=== PATIENT | female | born 1945 | race Caucasian/White ===

== ENCOUNTER 2021-05-31 13:29 | Outpatient (REF) | payer MEDICARE, OTHER, SELFPAY ==
--- NOTE | ~2021-05-31 | MR_ITS ---
EXAMINATION: MR BRAIN WITHOUT CONTRAST CLINICAL INFORMATION: APHASIA, R/O CVA, TIA COMPARISON: None TECHNIQUE: Multiplanar, multisequence MRI of the brain was obtained without contrast. FINDINGS: No focal reduced diffusion is seen to suggest acute or subacute cerebral ischemia. There is mild microvascular ischemic change. There is a moderate size area of encephalomalacia and gliosis involving the left frontal lobe and insula. No intracranial mass, intra-axial blood products, midline shift, or extra-axial collection is visualized. Midline structures are normal in appearance. The ventricles and sulcal spaces are mildly enlarged reflecting mild cerebral atrophy. Normal arterial and venous vascular flow voids are present. There is mild ethmoid air cell mucosal disease. There is a tiny inferior left mastoid air cell effusion. MR/MR head/brain wo con IMPRESSION: - No evidence of acute or subacute cerebral ischemia. - There is mild microvascular ischemic change. 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 - The ventricles and sulcal spaces are mildly enlarged reflecting mild cerebral atrophy.
== END 2021-05-31 13:30 | disposition home or self-care (01) ==
LOC: HO.MRI 13:29
PROVIDERS: PCP Internal Medicine; Visit Provider Physician Assistant
DX: R47.01 Aphasia (principal)
CPT/HCPCS: 70551

== ENCOUNTER 2023-04-12 19:44 | Inpatient (IN) | payer MEDICARE, SELFPAY ==
--- NOTE | ~2023-04-12 | XR_ITS ---
Examination: Left ankle and left foot. CLINICAL INDICATION: Ankle pain. TECHNIQUE: Left ankle 2 views and left foot 3 views. FINDINGS: Left foot and ankle: There is hallux valgus deformity first and TV joint. No visible acute fracture, dislocation or subluxation seen. There is mild osteopenia. The ankle mortise and subtalar joints are normal. A small calcaneal heel enthesophyte is seen. There are vascular calcifications around the left ankle. XR/XR foot LT 2V IMPRESSION: 1. Mild hallux valgus deformity first MTP joint. No visible acute fracture or dislocation seen in left foot or left ankle There is a small calcaneal heel enthesophyte. 2. There is mild osteopenia.
--- NOTE | ~2023-04-12 | XR_ITS ---
Examination: Left ankle and left foot. CLINICAL INDICATION: Ankle pain. TECHNIQUE: Left ankle 2 views and left foot 3 views. FINDINGS: Left foot and ankle: There is hallux valgus deformity first and TV joint. No visible acute fracture, dislocation or subluxation seen. There is mild osteopenia. The ankle mortise and subtalar joints are normal. A small calcaneal heel enthesophyte is seen. There are vascular calcifications around the left ankle. XR/XR ankle LT min 3V IMPRESSION: 1. Mild hallux valgus deformity first MTP joint. No visible acute fracture or dislocation seen in left foot or left ankle There is a small calcaneal heel enthesophyte. 2. There is mild osteopenia.
--- NOTE | ~2023-04-12 | XR_ITS ---
EXAMINATION: XR CHEST CLINICAL INFORMATION: Chest x-ray COMPARISON: None available. TECHNIQUE: Frontal view of the chest was obtained. FINDINGS: Right-sided pacemaker lead tips overlie the right atrium and right ventricle. Status post TAVR. Lung volumes are symmetric. There is blunting of the costophrenic angles which may represent small pleural effusions versus pleural thickening/scarring. Mild subsegmental atelectasis at the right lung base. No additional consolidation bilaterally. No evidence of pneumothorax. Cardiac silhouette appears enlarged. There is atherosclerotic calcification along the aorta. No acute osseous findings are seen. Partially visualized gastric band in the upper abdomen. XR/XR chest 1V IMPRESSION: Blunting of the costophrenic angles which may represent small pleural effusions versus pleural thickening/scarring. Mild right basilar subsegmental atelectasis.
[2023-04-12 20:01] VITALS: BP 100/49; PULSE 91; RESP 26; TEMP 36.4; O2SAT 97; BMI 23.9
--- NOTE | 2023-04-12 20:07 | ECG_ITS ---
Test Reason : CP Blood Pressure : / mmHG Vent. Rate : 095 BPM Atrial Rate : 095 BPM P-R Int : 184 ms QRS Dur : 170 ms QT Int : 418 ms P-R-T Axes : 048 -14 133 degrees QTc Int : 525 ms Normal sinus rhythm Left atrial enlargement Left bundle branch block Abnormal ECG No previous ECGs available Referred By: Generic ED Physician Electronically Signed By:TE FISH MD
[2023-04-12 20:32] LABS: MANUAL DIFF FLAG NO
[2023-04-12 20:34] LABS: Basophils Percent Auto 0.6 % (0-2); Eosinophils Absolute Auto 0.2 X10*3/uL (0.0-0.4); Eosinophils Percent Auto 3.1 % (0-4); Hematocrit 41.3 % (37.0-47.0); Hemoglobin 13.5 g/dl (12.0-16.0); Imm Gran Abs Auto 0.01 X10*3/uL (0.00-0.03); Imm Gran Pct Auto 0.2 % (0.0-0.4); Lymphocytes Absolute Auto 0.6 X10*3/uL (1.2-4.9); Lymphocytes Percent Auto 11.7 % (20-40); Mean Corpuscular HGB Conc 32.7 g/dl (31.0-35.0); Mean Corpuscular Hemoglobin 30.1 pg (27.0-33.0); Mean Platelet Volume 9.3 fL (9.4-12.3); Monocytes Absolute Auto 0.7 X10*3/uL (0.1-1.2); Monocytes Percent Auto 15.1 % (2-11); Neutrophils Absolute Auto 3.4 x10*3/uL (2.0-8.3); Neutrophils Percent Auto 69.3 % (45-73); Platelet Count 260 X10*3/uL (160-400); Red Blood Count 4.49 X10*6/uL (4.20-5.50); Red Cell Distribution Width 15.1 % (11.0-16.0); White Blood Count 4.9 X10*3/uL (4.8-10.8)
--- NOTE | 2023-04-12 20:39 | ED_ITS ---
HPI - Chest Pain General Chief Complaint: Chest Pain Stated Complaint: CHEST PAIN Time Seen by Provider: 04/12/23 20:21 Source: patient and EMS Mode of arrival: EMS Limitations: no limitations History of Present Illness HPI narrative: A 77 year female came in from a long-term for evaluation of chest pain. Discomfort across the chest started about 3-4 hours ago after having his dinner pain lasted for about 10 minutes, no radiation, no other associated symptoms. Patient now has no pain, no clear factor to alleviate the pain or make it worse. Related Data Allergies Allergy/AdvReac Type Severity Reaction Status Date / Time Unable to Assess Allergy Verified 04/12/23 20:51 Review of Systems Review of Systems: All other systems are reviewed and are negative Constitutional: Reports as per HPI and Reports no additional constitutional complaints Eyes: Reports as per HPI and Reports no additional eye complaints Reports system reviewed and no additional complaints, except as documented Cardiovascular: Reports as per HPI and Reports no additional cardiovascular complaints Respiratory: Reports as per HPI and Reports no additional respiratory complaints Gastrointestinal: Reports as per HPI and Reports no additional gastrointestinal complaints Genitourinary: Reports no additional female genitourinary complaints Musculoskeletal: Reports no additional musculoskeletal complaints Skin/Breast: Reports system reviewed and no additional complaints, except as docu Psychiatric: Reports no additional psychiatric complaints Endocrine: Reports no additional endocrine complaints Hematologic/Lymphatic: Reports no additional hematologic/lymphatic complaints Allergic/Immunologic: Reports no additional allergic/immunologic complaints Reports system reviewed and no additional complaints, except as documented and Reports Abnormal speech present [facility] Social History Social History Alcohol intake: never Smoked in Last 30 Days: No Use of substances other than those prescribed or required for medical reasons: No Advance Directives: No Advance Directives Information Provided: No Physical Exam Vital Signs: Vital Signs: Last Vital Signs Temp 98 F 04/12/23 23:09 Pulse 84 04/12/23 23:09 Resp 18 04/12/23 23:09 BP 101/55 L 04/12/23 23:09 Pulse Ox 94 04/12/23 23:09 O2 Del Method Room Air 04/12/23 23:09 BMI result Body Mass Index 23.9 Vital signs have been reviewed as appeared to be correct. Blood pressure normal. Heart rate normal. Respiration rate normal. Temperature normal. Oxygen saturation normal. Appearance: Alert. Oriented X3. No acute distress. Head: Normal external exam. Normocephalic. Atraumatic. No Hanson signs noted. No raccoon eyes noted Eyes: PERRLA. EOMI. Conjunctiva and sclera normal. Eyelids normal. ENT: TM's Normal. Pharynx normal. Uvula midline. Moist mucous membranes. No trismus noted. No drooling noted. No muffled voice noted. Neck: Normal inspection. Neck supple. FROM. No adenopathy. Thyroid Normal. No meningeal signs. No neck mass noted. CVS: Normal heart rate and rhythm. Heart sound normal. No murmurs noted. Pulses normal throughout. Respiratory: No respiratory distress. Painless inspiration. Breath sounds normal. Bilateral rales at the bases. Chest nontender. No accessory muscle usage noted or decreased air movement noted. Abdomen: Soft and nontender. Bowel sounds normal in all 4 quadrants. No distention noted. No organomegaly noted. No visible injury noted. Back: No CVA tenderness. Full range of motion noted. Skin: Skin warm and dry. Normal skin color. Normal skin turgor. No rashes/lesions/lacerations noted. Extremities: +2 lower extremity edema. Extremities exhibit normal range of motion. Extremities nontender. Neuro: Oriented X 3. Cranial nerve exam: II-XII are grossly intact No motor deficit. No sensory deficit. Reflexes normal. Course Course Course Narrative: 77-year-old female came in for CP/SOB, physical exam consistent with congestive heart failure, patient was given Lasix in the emergency department for diuresis, will admit the patient Medical Decision Making Differential Diagnosis Differential Diagnoses: The differential diagnosis associated with the presentation includes (CHF, pneumonia, pneumothorax, pleural effusion, ACS, electrolyte abnormalities, severe anemia.) Admission/Observation Consideration of admission/observation: Escalation of care including admission/ observation considered Consult Healthcare Provider Management of the patient was discussed with: Hospitalist (Dr. Tejada) Lab Data MDM Lab Attestation statement: I reviewed the patient's lab results. 04/12/23 20:28 04/12/23 20:28 Labs: Lab Results 04/12/23 04/12/23 04/12/23 Range/Units 20:28 20:28 20:28 WBC 4.9 (4.8-10.8) X10*3/uL RBC 4.49 (4.20-5.50) X10*6/uL Hgb 13.5 (12.0-16.0) g/dl Hct 41.3 (37.0-47.0) % MCV 92.0 (80.0-98.0) fL MCH 30.1 (27.0-33.0) pg MCHC 32.7 (31.0-35.0) g/dl RDW 15.1 (11.0-16.0) % Plt Count 260 (160-400) X10*3/uL MPV 9.3 L (9.4-12.3) fL Immature Gran % (Auto) 0.2 (0.0-0.4) % Neut % (Auto) 69.3 (45-73) % Lymph % (Auto) 11.7 L (20-40) % Angel[place] % (Auto) 15.1 H (2-11) % Eos % (Auto) 3.1 (0-4) % Baso % (Auto) 0.6 (0-2) % Lymph # (Auto) 0.6 L (1.2-4.9) X10*3/uL [place] # (Auto) 0.7 (0.1-1.2) X10*3/uL Eos # (Auto) 0.2 (0.0-0.4) X10*3/uL Baso # (Auto) 0.0 (0.0-0.2) X10*3/uL Abs Immat Gran (auto) 0.01 (0.00-0.03) X10*3/uL Absolute Neuts (auto) 3.4 (2.0-8.3) x10*3/uL Absolute Nucleated RBC 0.000 (0.0-0.012) X10*3/uL Nucleated RBC % (auto) 0.0 (0.0-0.2) /100WBC PT (10.0-13.1) SEC INR (0.9-1.1) Sodium 137 (135-145) mmol/L Potassium 4.2 (3.3-5.1) mmol/L Chloride 97 (96-108) mmol/L Carbon Dioxide 31 H (22-29) mmol/L Anion Gap 13 (12-20) BUN 42 H (9-16) mg/dL Creatinine 1.05 (0.5-1.4) mg/dL Estim Creat Clear Calc 40.0 Estimated GFR 51 Random Glucose 129 H (60-115) mg/dL Calcium 9.5 (8.4-10.2) mg/dL Magnesium (1.6-2.6) mg/dL Total Bilirubin 0.9 (0.0-1.0) mg/dL Direct Bilirubin 0.3 (0.0-0.5) mg/dL AST 20 (5-31) U/L ALT 7 (0-31) U/L Alkaline Phosphatase 118 H (39-117) U/L Troponin I High Sens 17.2 H (<3.5-17.0) ng/L B-Natriuretic Peptide (<100) pg/mL Total Protein 7.2 (6.5-8.0) g/dL Albumin 3.7 (3.5-5.0) g/dL Lipase 46 (8-78) U/L 04/12/23 04/12/23 04/12/23 Range/Units 20:42 20:42 20:42 WBC (4.8-10.8) X10*3/uL RBC (4.20-5.50) X10*6/uL Hgb (12.0-16.0) g/dl Hct (37.0-47.0) % MCV (80.0-98.0) fL MCH (27.0-33.0) pg MCHC (31.0-35.0) g/dl RDW (11.0-16.0) % Plt Count (160-400) X10*3/uL MPV (9.4-12.3) fL Immature Gran % (Auto) (0.0-0.4) % Neut % (Auto) (45-73) % Lymph % (Auto) (20-40) % [place] % (Auto) (2-11) % Eos % (Auto) (0-4) % Baso % (Auto) (0-2) % Lymph # (Auto) (1.2-4.9) X10*3/uL [place] # (Auto) (0.1-1.2) X10*3/uL Eos # (Auto) (0.0-0.4) X10*3/uL Baso # (Auto) (0.0-0.2) X10*3/uL Abs Immat Gran (auto) (0.00-0.03) X10*3/uL Absolute Neuts (auto) (2.0-8.3) x10*3/uL Absolute Nucleated RBC (0.0-0.012) X10*3/uL Nucleated RBC % (auto) (0.0-0.2) /100WBC PT 18.7 H (10.0-13.1) SEC INR 1.6 H (0.9-1.1) Sodium (135-145) mmol/L Potassium (3.3-5.1) mmol/L Chloride (96-108) mmol/L Carbon Dioxide (22-29) mmol/L Anion Gap (12-20) BUN (9-16) mg/dL Creatinine (0.5-1.4) mg/dL Estim Creat Clear Calc Estimated GFR Random Glucose (60-115) mg/dL Calcium (8.4-10.2) mg/dL Magnesium 2.2 (1.6-2.6) mg/dL Total Bilirubin (0.0-1.0) mg/dL Direct Bilirubin (0.0-0.5) mg/dL AST (5-31) U/L ALT (0-31) U/L Alkaline Phosphatase (39-117) U/L Troponin I High Sens (<3.5-17.0) ng/L B-Natriuretic Peptide 3483 H (<100) pg/mL Total Protein (6.5-8.0) g/dL Albumin (3.5-5.0) g/dL Lipase (8-78) U/L 04/12/23 Range/Units 23:16 WBC (4.8-10.8) X10*3/uL RBC (4.20-5.50) X10*6/uL Hgb (12.0-16.0) g/dl Hct (37.0-47.0) % MCV (80.0-98.0) fL MCH (27.0-33.0) pg MCHC (31.0-35.0) g/dl RDW (11.0-16.0) % Plt Count (160-400) X10*3/uL MPV (9.4-12.3) fL Immature Gran % (Auto) (0.0-0.4) % Neut % (Auto) (45-73) % Lymph % (Auto) (20-40) % Angel[place] % (Auto) (2-11) % Eos % (Auto) (0-4) % Baso % (Auto) (0-2) % Lymph # (Auto) (1.2-4.9) X10*3/uL [place] # (Auto) (0.1-1.2) X10*3/uL Eos # (Auto) (0.0-0.4) X10*3/uL Baso # (Auto) (0.0-0.2) X10*3/uL Abs Immat Gran (auto) (0.00-0.03) X10*3/uL Absolute Neuts (auto) (2.0-8.3) x10*3/uL Absolute Nucleated RBC (0.0-0.012) X10*3/uL Nucleated RBC % (auto) (0.0-0.2) /100WBC PT (10.0-13.1) SEC INR (0.9-1.1) Sodium (135-145) mmol/L Potassium (3.3-5.1) mmol/L Chloride (96-108) mmol/L Carbon Dioxide (22-29) mmol/L Anion Gap (12-20) BUN (9-16) mg/dL Creatinine (0.5-1.4) mg/dL Estim Creat Clear Calc Estimated GFR Random Glucose (60-115) mg/dL Calcium (8.4-10.2) mg/dL Magnesium (1.6-2.6) mg/dL Total Bilirubin (0.0-1.0) mg/dL Direct Bilirubin (0.0-0.5) mg/dL AST (5-31) U/L ALT (0-31) U/L Alkaline Phosphatase (39-117) U/L Troponin I High Sens 19.3 H (<3.5-17.0) ng/L B-Natriuretic Peptide (<100) pg/mL Total Protein (6.5-8.0) g/dL Albumin (3.5-5.0) g/dL Lipase (8-78) U/L Independent Interpretation I performed an independent interpretation of an: EKG (NSR at 95 Bpm. LBBB with prolonged QRS otherwise unremarkable intervals, no ST-T changes.) and Plain X- Ray (Chest: Pulmonary edema with no congestion.) Radiology Impression Discussion of test interpretation with radiology: I have reviewed the radio logist's reading. Chronic Conditions Patient?s care impacted by: Other Discharge Plan Discharge Clinical Impression: Atypical chest pain, Congestive heart failure Patient Disposition: Admitted As Inpatient
[2023-04-12 20:44] VITALS: BP 90/68; PULSE 102; RESP 16; TEMP 37; O2SAT 100
[2023-04-12 20:48] LABS: Alanine Aminotransferase 7 U/L (0-31); Albumin Level 3.7 g/dL (3.5-5.0); Alkaline Phosphatase 118 U/L (39-117); Anion Gap 13 (12-20); Aspartate Amino Transferase 20 U/L (5-31); Bilirubin Direct 0.3 mg/dL (0.0-0.5); Bilirubin Total 0.9 mg/dL (0.0-1.0); Blood Urea Nitrogen 42 mg/dL (9-16); Calcium 9.5 mg/dL (8.4-10.2); Carbon Dioxide 31 mmol/L (22-29); Chloride 97 mmol/L (96-108); Estimated Glomerular Filt Rate 51; Glucose Random 129 mg/dL (60-115); Lipase 46 U/L (8-78); Potassium 4.2 mmol/L (3.3-5.1); Sodium 137 mmol/L (135-145); Total Protein 7.2 g/dL (6.5-8.0)
--- NOTE | 2023-04-12 20:52 | PC.NURSE ---
patient was brought in by Johnathan patient was complaining of having tightness in chest area after eating pizza patient has a history of left bundle branch patient blood pressure runs low patient stated she has a history of left breast cancer patient had all labs to be drawn and patient stated she does not have that feeling any more patient will continue to be monitored for safety until further orders from the doctor until further orders safety will be maintained
[2023-04-12 20:55] LABS: Troponin-I High Sensitivity 17.2 ng/L (<3.5-17.0)
[2023-04-12 20:56] LABS: INTERNATIONAL NORM RATIO 1.6 (0.9-1.1); Prothrombin Time 18.7 SEC (10.0-13.1)
[2023-04-12 21:02] LABS: Magnesium 2.2 mg/dL (1.6-2.6)
[2023-04-12 21:09] LABS: B Type Natriuretic Peptide 3483 pg/mL (<100)
[2023-04-12 23:09] VITALS: BP 101/55; PULSE 84; RESP 18; TEMP 36.6; O2SAT 94
[2023-04-12 23:43] LABS: Troponin-I High Sensitivity 19.3 ng/L (<3.5-17.0)
[2023-04-13] MEDS: Furosemide 40 MG/4 ML VIAL IVPUSH ×2 (00:21→10:30)
--- NOTE | 2023-04-13 00:23 | PC.NURSE ---
patient was able to tolerate the lasix given by IV patient will continue to be monitored for safety
[2023-04-13] MEDS: Enoxaparin Sodium 40 MG/0.4 ML SYRINGE SUBCUT (01:10)
[2023-04-13 02:49] LABS: Appearance Urine Clear; Color Urine Yellow; Glucose Urine UA Negative (Negative); Leukocyte Esterase Urine Trace (Negative); Nitrite Urine Negative (Negative); Specific Gravity - Urine <= 1.005 (1.005-1.025); UMIC TRIGGER UACC YES; Urine Blood Negative (Negative); Urine Ketones Negative (Negative); Urine Protein Negative (Neg-Trace)
[2023-04-13 02:53] LABS: Bacteria Urine None Seen (None Seen); Hyaline Casts Urine 0-2 /LPF (0-2); RBC Urine 0-2 /HPF (0-2); Squamous Epithelial Cell Urine 0-2 /HPF (0-2); WBC Urine 0-5 /HPF (0-5)
[2023-04-13 04:13] VITALS: BP 125/80; PULSE 77; RESP 18; TEMP 36.9; O2SAT 99
--- NOTE | 2023-04-13 04:14 | PC.NURSE ---
patient in bed with eyes open patient showing no distress at this time patient report was given to Josiah the receiving nurse patient was made aware patient will continue to be monitored for safety
[2023-04-13 04:30] VITALS: BP 110/59; PULSE 88; RESP 20; TEMP 36.1; O2SAT 98
--- NOTE | 2023-04-13 06:42 | PM.IMHP ---
History of Present Illness Date of Service: 04/13/23 Chief Complaint: chest pain this is a 77-year-old female past medical history of CHF with reduced ejection fraction, History of left bundle-branch block presents the hospital with complaints of chest pain that started this afternoon. patient is a poor historian but reports that she has chest pain across the chest, feels like something/ someone is sitting on her chest, nonradiating, lasted less than 30 minutes, resolved spontaneously, occurred at rest. Patient is also complaining of shortness of breath this been going on for several days, orthopnea, PND, no lower extremity edema. No cough, no fever chills. She denies any palpitations, no abdominal pain nausea or vomiting, no diarrhea constipation, no urinary symptoms and no lower extremity edema. Arrival to the ED patient hemodynamically stable no significant abnormal vitals Labs are significant for BNP of 3483, troponin of 17 that increased to 19, EKG showed normal sinus rhythm, with T-wave inversions in V6 left bundle branch block which patient has a history of. chest x-ray shows blunting of the costophrenic angle which may represent small pleural effusions patient started on IV Lasix and will be admitted for further management Review of Systems Review of Systems: Yes all other systems are reviewed and are negative [facility] Medical History History of CHF (congestive heart failure) History of left bundle branch block Hypertension Surgical History No pertinent past surgical history Social History Alcohol intake: never Smoked in Last 30 Days: No Use of substances other than those prescribed or required for medical reasons: No Advance Directives: No Advance Directives Information Provided: No Meds Allergies Allergy/AdvReac Type Severity Reaction Status Date / Time Unable to Assess Allergy Verified 04/12/23 20:51 Active Medications: Current Medications Acetaminophen (Acetaminophen 325 Mg Tablet) 650 mg PO Q6H PRN PRN Reason: Pain, Mild (Pain Scale 1-3) Aspirin (Aspirin Enteric Coated 81 Mg Tablet.Dr) 81 mg PO DAILY WILMAR Docusate Sodium (Docusate Sodium 100 Mg Capsule) 100 mg PO DAILY PRN PRN Reason: Constipation Enoxaparin Sodium (Enoxaparin Sodium 40 Mg/0.4 Ml Syringe) 40 mg SUBCUT Q24H WILMAR Last Admin: 04/13/23 01:10 Dose: 40 mg Furosemide (Furosemide 40 Mg/4 Ml Vial) 40 mg IVPUSH DAILY [facility]; Protocol Ondansetron HCl (Ondansetron Hcl 4 Mg/2 Ml Vial) 4 mg IVPUSH Q8H PRN PRN Reason: Nausea and Vomiting Sodium Chloride (0.9 % Sodium Chloride Flush 3 Ml Syringe) 3 ml IVFLUSH QSHIFT [facility] Physical Exam Vital Signs and Narrative: Vital Signs: Last Vital Signs Temp 96.9 F 04/13/23 04:30 Pulse 88 04/13/23 04:30 Resp 20 04/13/23 04:30 BP 110/59 L 04/13/23 04:30 Pulse Ox 98 04/13/23 04:30 O2 Del Method Room Air 04/13/23 04:30 BMI result Body Mass Index 23.9 Const: General: cooperative and no acute distress Eyes: General: appearance normal, both eyes and all related structures Resp: Effort & Inspection: normal respiratory effort Auscultation: clear to auscultation bilaterally Cardio: Rate: regular rate Rhythm: regular rhythm GI: Palpation (GI): Soft to palpation Auscultation: normal bowel sounds Skin: General skin exam: no rashes or lesions noted Neuro: Cognition (Neuro): normal cognition Extrem: General: Yes normal to inspection and Yes no pedal edema Results Labs 04/12/23 20:28 04/12/23 20:28 Labs: Laboratory Results - last 24 hr 04/12/23 04/12/23 04/12/23 20:28 20:28 20:28 MCV 92.0 MCH 30.1 MCHC 32.7 RDW 15.1 Plt Count 260 MPV 9.3 L Immature Gran % (Auto) 0.2 Neut % (Auto) 69.3 Lymph % (Auto) 11.7 L [place] % (Auto) 15.1 H Eos % (Auto) 3.1 Baso % (Auto) 0.6 Lymph # (Auto) 0.6 L [place] # (Auto) 0.7 Eos # (Auto) 0.2 Baso # (Auto) 0.0 Abs Immat Gran (auto) 0.01 Absolute Neuts (auto) 3.4 Absolute Nucleated RBC 0.000 Nucleated RBC % (auto) 0.0 PT INR Anion Gap 13 Estim Creat Clear Calc 40.0 Estimated GFR 51 Random Glucose 129 H Calcium 9.5 Magnesium Total Bilirubin 0.9 Direct Bilirubin 0.3 AST 20 ALT 7 Alkaline Phosphatase 118 H Troponin I High Sens 17.2 H B-Natriuretic Peptide Total Protein 7.2 Albumin 3.7 Lipase 46 Urine Color Urine Appearance Urine pH Ur Specific [place] Urine Protein Urine Glucose (UA) Urine Ketones Urine Blood Urine Nitrite Ur Leukocyte Esterase Urine RBC Urine WBC Ur Squamous Epith Cells Urine Bacteria Hyaline Casts 04/12/23 04/12/23 04/12/23 20:42 20:42 20:42 MCV MCH MCHC RDW Plt Count MPV Immature Gran % (Auto) Neut % (Auto) Lymph % (Auto) [place] % (Auto) Eos % (Auto) Baso % (Auto) Lymph # (Auto) [place] # (Auto) Eos # (Auto) Baso # (Auto) Abs Immat Gran (auto) Absolute Neuts (auto) Absolute Nucleated RBC Nucleated RBC % (auto) PT 18.7 H INR 1.6 H Anion Gap Estim Creat Clear Calc Estimated GFR Random Glucose Calcium Magnesium 2.2 Total Bilirubin Direct Bilirubin AST ALT Alkaline Phosphatase Troponin I High Sens B-Natriuretic Peptide 3483 H Total Protein Albumin Lipase Urine Color Urine Appearance Urine pH Ur Specific [place] Urine Protein Urine Glucose (UA) Urine Ketones Urine Blood Urine Nitrite Ur Leukocyte Esterase Urine RBC Urine WBC Ur Squamous Epith Cells Urine Bacteria Hyaline Casts 04/12/23 04/13/23 23:16 02:44 MCV MCH MCHC RDW Plt Count MPV Immature Gran % (Auto) Neut % (Auto) Lymph % (Auto) [place] % (Auto) Eos % (Auto) Baso % (Auto) Lymph # (Auto) [place] # (Auto) Eos # (Auto) Baso # (Auto) Abs Immat Gran (auto) Absolute Neuts (auto) Absolute Nucleated RBC Nucleated RBC % (auto) PT INR Anion Gap Estim Creat Clear Calc Estimated GFR Random Glucose Calcium Magnesium Total Bilirubin Direct Bilirubin AST ALT Alkaline Phosphatase Troponin I High Sens 19.3 H B-Natriuretic Peptide Total Protein Albumin Lipase Urine Color Yellow Urine Appearance Clear Urine pH 7.0 Ur Specific [place] <= 1.005 Urine Protein Negative Urine Glucose (UA) Negative Urine Ketones Negative Urine Blood Negative Urine Nitrite Negative Ur Leukocyte Esterase Trace H Urine RBC 0-2 Urine WBC 0-5 Ur Squamous Epith Cells 0-2 Urine Bacteria None Seen Hyaline Casts 0-2 Imaging Radiologist's Impressions: Impressions Chest X-Ray 04/12/23 20:34 IMPRESSION: Blunting of the costophrenic angles which may represent small pleural effusions versus pleural thickening/scarring. Mild right basilar subsegmental atelectasis. Assessment and Plan (1) Acute exacerbation of CHF (congestive heart failure): Status: Acute (2) Chest pain: Status: Acute Plan 77-year-old female with past medical history of CHF with preserved ejection fraction, history of LBBB, presents to the hospital with complaints of chest pain found to be in CHF exacerbation # acute CHF exacerbation - has elevated BNP, evidence of pulmonary effusion - will treat with IV Lasix - echocardiogram - cardiology consult # chest pain - although typical, patient has slightly elevated troponin with no delta - EKG shows LBBB, but according to her history patient has a history of it with no new evidence of ACS - likely type 2 in the setting of CHF - will obtain echocardiogram - admit to telemetry patient med rec still pending, consulted pharmacy DVT prophylaxis: Lovenox Given patient's need for treatment with IV Lasix, patient require minimum 2 nights inpatient hospital stay for further management and monitoring Time Spent With Patient Time: Total time managing care of this patient today ____ minutes. Quality Stroke Does the patient have a stroke diagnosis?: No VTE Prior VTE?: No VTE Risk Level:: Medical - moderate - high VTE Device Contraindication: Treatment Not Indicated VTE Drug Contraindication: N/A - Med Ordered
--- NOTE | 2023-04-13 07:00 | CA_ITS ---
Transthoracic Echocardiogram Patient (Last, First, Middle): Lucy Pandey J Gender: Female Date of : 1945 Age: 77 Procedure Date: 04/13/2023 Procedure Type: Transthoracic Echocardiogram Location: [facility] – [place] Height: 162.56 cm Weight: 63.05 kg BSA: 1.68 m2 Heart Rate: 85 bpm BP: 110 / 59 mmHg Beater Engineer Helper: SARA Douglass MD: Jeannette Chew MD Bobbin Handler: Garfield Garvin MD Symptoms: CHF Study Quality: Adequate ECG Rhythm: Sinus Conclusions: - 1. Mildly dilated left ventricle with significantly reduced LV ejection fraction with LVEF of 20 25% with regional wall motion abnormality consistent with ischemic cardiomyopathy 2. Biatrial enlargement, left greater than right 3. Mild mitral regurgitation and [id number] aortic stenosis 4. Normal RV systolic pressure with mildly elevated right atrial pressures 5. No gross pericardial effusion Findings Left Ventricle Mildly increased left ventricular cavity size. There is normal left ventricular wall thickness. The left ventricular systolic function is severely decreased. The visually estimated ejection fraction is between 20 25%. Diastolic function is indeterminate on the basis of available data. Peak GLS is -4.8%, which is markedly reduced. Wall Motion Rest Echo Findings The inferoseptal wall, inferior wall, inferolateral wall, the apical septum, and mid anteroseptal segments are akinetic. All other scored wall segments showed normal motion. Right Ventricle Mildly increased right ventricular cavity size. There is normal right ventricular systolic function. There is a pacemaker wire seen in the right ventricle. Atria The left atrium is moderately dilated. There is a mobile atrial septum noted. Interatrial shunt cannot be excluded. The right atrium is mildly dilated. A pacemaker wire is identified in the right atrium. Aortic Valve There is mild calcification of the aortic valve. There is mild to moderate aortic valve stenosis. There is no aortic valve regurgitation. Mitral Valve There is mild anterior and posterior mitral leaflet thickening. There is moderate mitral annular calcification. There is mild mitral valve regurgitation. There is no mitral valve stenosis. Pulmonic Valve The pulmonic valve was not well visualized. Tricuspid Valve Normal tricuspid valve structure. There is mild tricuspid valve regurgitation. Mildly elevated right atrial pressure. There is no evidence of pulmonary hypertension. Great Vessels All visible segments of the aorta are normal in size. The pulmonary artery was not well visualized. Venous The inferior vena cava is mildly dilated and collapses less than 50% with inspiration. Pericardium/Pleural There is no evidence of pericardial effusion. Prior Study Comparison No prior study available for comparison. Measurements 2D Linear Measurements IVSd: 0.87 0.6-0.9/0.6-1.0 cm LVIDd: 5.86 3.9-5.3/4.2-5.9 cm LVIDd Index: 3.49 2.4-3.2/2.2-3.1 cm/m2 LVIDs: 5.64 2.0-3.6 cm LVPWd: 0.96 0.7-1.1 cm LA Diam: 4.60 2.7-3.8/3.0-4.0 cm LAIDs Index: 2.74 1.5-2.3 cm/m2 LV Mass: 263.85 67-162/88-224 g LV Mass Index: 157.05 43-95/49-115 g/m2 LVOT Diam: 2.10 3.0+(-)1.3 cm 2D Systolic Function EF 4C: 16.40 >55% EF 2C: 29.70 >55% EF BiP: 23.40 >55% Mitral Valve MV VTI: 0.24 MV Pk Jared: 1.79 MV Mn Jared: 1.21 MV Pk Grad: 13.00 MV Mn Grad: 7.00 MV Pk E: 1.44 MV Decel Time: 168.00 E'Lateral: 9.25 E'Medial: 4.90 E/E' Med: 29.40 E/E' Lat: 15.60 PHT: 49.00 MVA PHT: 4.49 MVA Continuity: 2.61 Decel Erath: 8.57 Aortic Valve AoV Pk Jared: 2.06 AoV Mn Jared: 1.46 AoV VTI: 0.44 AoV Pk Grad: 17.00 Aov Mn Grad: 10.00 TAD Cont.VTI: 1.45 LVOT LVOT Pk Jared: 0.81 LVOT Mn Jared: 0.57 LVOT VTI: 0.18 LVOT Pk Grad: 3.00 LVOT Mn Grad: 2.00 LVOT Diam: 2.10 LVOT Area: 3.46 Diastolic Function MV Pk E: 1.44 E'Medial: 4.90 E/E' Med: 29.40 E' Laterial: 9.25 E/E' Lat: 15.60 Right Ventricle TAPSE (mm): 26.90 TVS' Jared: 7.40 Tricuspid Valve TR Pk Jarde: 2.53 TR Pk Grad: 26.00 RA Press: 8.00 RVSP: 34.00 Great Vessels Aorta Sinus of Valsalva: 3.20 2.0-3.5 cm Ao Asc: 3.10 2.1-3.4 cm Pulmonary Valve PV Pk Jared: 0.80 Peak PV Grad: 3.00 Updated in Other Vendor System with Status of Final Garfield Garvin MD electronically signed on 04/13/2023 11:58:32 AM with status of Final
[2023-04-13 07:08] LABS: Alanine Aminotransferase 6 U/L (0-31); Albumin Level 3.5 g/dL (3.5-5.0); Alkaline Phosphatase 104 U/L (39-117); Anion Gap 12 (12-20); Aspartate Amino Transferase 18 U/L (5-31); Bilirubin Total 0.9 mg/dL (0.0-1.0); Blood Urea Nitrogen 39 mg/dL (9-16); Calcium 9.5 mg/dL (8.4-10.2); Carbon Dioxide 29 mmol/L (22-29); Chloride 99 mmol/L (96-108); Creatinine Clr Calc Pharmacy 44.6; Estimated Glomerular Filt Rate 58; Glucose Random 94 mg/dL (60-115); Potassium 4.1 mmol/L (3.3-5.1); Sodium 136 mmol/L (135-145); Total Protein 6.9 g/dL (6.5-8.0)
[2023-04-13 07:37] VITALS: BP 115/56; PULSE 90; RESP 18; TEMP 36.8; O2SAT 96
--- NOTE | 2023-04-13 08:49 | PHA.MEDREC ---
Pharmacy Consult ? Medication Reconciliation Pharmacy has completed the medication reconciliation. List from manuel goldberg
[2023-04-13 10:01] LABS: B Type Natriuretic Peptide 3136 pg/mL (<100)
[2023-04-13] MEDS: Aspirin Enteric Coated 81 MG TABLET.DR PO (10:30)
[2023-04-13] MEDS: 0.9 % Sodium Chloride Flush 3 ML SYRINGE IVFLUSH ×3 (10:31→19:58)
--- NOTE | 2023-04-13 10:38 | PM.CNCAR ---
History of Present Illness History of Present Illness Date of Service: 04/13/23 Requesting physician: Margaux Mauro Consult reason: congestive heart failure Chief complaint: Acute CHF Narrative: I was consulted to see Lucy in cardiology consultation today for decompensated congestive heart failure and chest discomfort. History was mostly obtained from the chart as patient is a poor historian is not able to provide accurate history. Also discuss her history with Alexandra Richardsvester who is healthcare proxy to the patient but is not related to her and does not know in details of her history. However as per her she has prior history of congestive heart failure and has been told in the past to have a defibrillator and had seen managed care manager about 4-5 months ago. She also has a pacemaker placed in about 5 years ago and has prior history of myocardial infarction many years ago. Also seems to have aortic valve replacement although details unknown based on the echocardiographic finding. Will obtain old records from her managed care manager office. As per the healthcare proxy [facility] because of chest pressure and worsening shortness of breath. As per her she has had significant decline in her overall health in 1 year from being physically very active to limited activity level and has advanced cognitive dysfunction of unclear etiology. She seems to have at stroke but this is unclear. MRI done 2 years ago at shown encephalomalacia consistent with prior stroke. Patient is on low-dose Eliquis therapy for the same. Patient has had difficulty managing [facility] the [facility] and they are increase her torsemide but that will had led to lower blood pressure and had lead to pull back in her torsemide dose. She has had progressive shortness of breath, orthopnea, PND over the last couple weeks. She came to the hospital with across the chest discomfort. She was admitted at troponins are minimally elevated and flat. BNP was significantly elevated and she had decompensated congestive heart failure and was admitted for the same. Her intake and output chart has not been monitored. However she appears comfortable at this point in time. Review of Systems Review of Systems: Yes Unobtainable due to mental status Neurologic: Reports confusion Psychiatric: Psychiatric: Reports confusion [facility] Past Medical History Medical History History of CHF (congestive heart failure) History of left bundle branch block Hypertension Surgical History Surgical History No pertinent past surgical history Social History Social History Household Members: Other Housing: Detention Do you presently have visiting nurse or other home services: No Alcohol intake: never Patient Tobacco Use Status: Never used Tobacco Smoked in Last 30 Days: No Use of substances other than those prescribed or required for medical reasons: No Currently Displaying Signs/Symptoms of Drug Intoxication Withdrawal: No Advance Directives: No Advance Directives Information Provided: No Do you have thoughts of harming others: None Do you have a plan to hurt others: No Plan Nutrition Risks: No Nutritional Risk Patient : No : No Poor oral hygiene: No Meds Allergies Allergy/AdvReac Type Severity Reaction Status Date / Time Unable to Assess Allergy Verified 04/12/23 20:51 Active Medications: Current Medications Acetaminophen (Acetaminophen 325 Mg Tablet) 650 mg PO Q6H PRN PRN Reason: Pain, Mild (Pain Scale 1-3) Anastrozole (Anastrozole 1 Mg Tablet) 1 mg PO DAILY WILMAR Apixaban (Apixaban 2.5 Mg Tablet) 2.5 mg PO BID WILMAR Aspirin (Aspirin Enteric Coated 81 Mg Tablet.) 81 mg PO DAILY WILMAR Last Admin: 04/13/23 10:30 Dose: 81 mg Aspirin (Aspirin Enteric Coated 81 Mg Tablet.) 81 mg PO DAILY WILMAR Atorvastatin Calcium (Atorvastatin Calcium 20 Mg Tablet) 20 mg PO BEDTIME WILMAR Docusate Sodium (Docusate Sodium 100 Mg Capsule) 100 mg PO DAILY PRN PRN Reason: Constipation Enoxaparin Sodium (Enoxaparin Sodium 40 Mg/0.4 Ml Syringe) 40 mg SUBCUT Q24H [facility] Last Admin: 04/13/23 01:10 Dose: 40 mg Furosemide (Furosemide 40 Mg/4 Ml Vial) 40 mg IVPUSH DAILY WILMAR; Protocol Last Admin: 04/13/23 10:30 Dose: 40 mg Multi-Ingred Cream/Lotion/Oil/Oint (Artificial Tears Ophth Oint 3.5 Gm Tube) 1 appl EYE-BOTH DAILY PRN; Protocol PRN Reason: Dry Eye(S) Ondansetron HCl (Ondansetron Hcl 4 Mg/2 Ml Vial) 4 mg IVPUSH Q8H PRN PRN Reason: Nausea and Vomiting Pharmacy Consult (Consult Rx Perform Med Rec) 1 each MISCELLANE ONCE PRN PRN Reason: Consult order Sodium Chloride (0.9 % Sodium Chloride Flush 3 Ml Syringe) [facility] Last Admin: 04/13/23 10:31 Dose: 3 ml Home Medications Medication Instructions Recorded Confirmed Last Taken Type acetaminophen 325 mg tablet 650 mg PO Q4H PRN Pain 04/13/23 04/13/23 Unknown History anastrozole 1 mg tablet 1 mg PO DAILY 04/13/23 04/13/23 Unknown History apixaban 2.5 mg tablet (Eliquis) 2.5 mg PO BID 04/13/23 04/13/23 Unknown History aspirin 81 mg tablet,delayed 81 mg PO DAILY 04/13/23 04/13/23 Unknown History release atorvastatin 20 mg tablet 20 mg PO BEDTIME 04/13/23 04/13/23 Unknown History metolazone 2.5 mg tablet 2.5 mg PO MOFR 04/13/23 04/13/23 Unknown History sacubitril 24 mg-valsartan 26 mg 1 tab PO BID 04/13/23 04/13/23 Unknown History tablet (Entresto) torsemide 20 mg tablet 40 mg PO DAILY 04/13/23 04/13/23 Unknown History white petrolatum-mineral oil 83 1 appl ophthalmic (eye) DAILY PRN 04/13/23 04/13/23 Unknown History %-15 % eye ointment (Artificial Dry Eye(S) Eye Lubricant) Physical Exam Vital Signs: Vital Signs: Last Vital Signs Temp 98.2 F 04/13/23 07:37 Pulse 90 04/13/23 07:37 Resp 18 04/13/23 07:37 BP 115/56 L 04/13/23 07:37 Pulse Ox 96 04/13/23 07:37 O2 Del Method Room Air 04/13/23 07:37 BMI result Body Mass Index 23.9 Const: General: cooperative, comfortable, alert, awake and confusion Nutritional Appearance: average body habitus Orientation/consciousness: confusion Limitations: no limitations HEENT: Head: Yes normocephalic and Yes atraumatic Neck: Neck: Yes trachea midline, Yes supple and Yes no JVD Resp: Effort & Inspection: normal respiratory effort Auscultation: rales bilateral at the base Cardio: Rate: regular rate Rhythm: regular rhythm Heart sounds: S1 normal heart sound present, S2 normal heart sound present, no click, Gallop heart sound present and no murmurs GI: Auscultation: normal bowel sounds Skin: General skin exam: no rashes or lesions noted Neuro: General: no focal motor deficits and confusion Extrem: General: No no clubbing, cyanosis or edema Psych: Appearance: grossly normal Objective Labs and Meds 04/12/23 20:28 04/13/23 06:17 Lab results: Laboratory Results - last 24 hr 04/12/23 04/12/23 04/12/23 20:28 20:28 20:28 WBC 4.9 RBC 4.49 Hgb 13.5 Hct 41.3 MCV 92.0 MCH 30.1 MCHC 32.7 RDW 15.1 Plt Count 260 MPV 9.3 L Immature Gran % (Auto) 0.2 Neut % (Auto) 69.3 Lymph % (Auto) 11.7 L Swisher % (Auto) 15.1 H Eos % (Auto) 3.1 Baso % (Auto) 0.6 Lymph # (Auto) 0.6 L Swisher # (Auto) 0.7 Eos # (Auto) 0.2 Baso # (Auto) 0.0 Abs Immat Gran (auto) 0.01 Absolute Neuts (auto) 3.4 Absolute Nucleated RBC 0.000 Nucleated RBC % (auto) 0.0 PT INR Sodium 137 Potassium 4.2 Chloride 97 Carbon Dioxide 31 H Anion Gap 13 BUN 42 H Creatinine 1.05 Estim Creat Clear Calc 40.0 Estimated GFR 51 Random Glucose 129 H Calcium 9.5 Magnesium Total Bilirubin 0.9 Direct Bilirubin 0.3 AST 20 ALT 7 Alkaline Phosphatase 118 H Troponin I High Sens 17.2 H B-Natriuretic Peptide Total Protein 7.2 Albumin 3.7 Lipase 46 Urine Color Urine Appearance Urine pH Ur Specific Alexander Urine Protein Urine Glucose (UA) Urine Ketones Urine Blood Urine Nitrite Ur Leukocyte Esterase Urine RBC Urine WBC Ur Squamous Epith Cells Urine Bacteria Hyaline Casts 04/12/23 04/12/23 04/12/23 20:42 20:42 20:42 WBC RBC Hgb Hct MCV MCH MCHC RDW Plt Count MPV Immature Gran % (Auto) Neut % (Auto) Lymph % (Auto) Swisher % (Auto) Eos % (Auto) Baso % (Auto) Lymph # (Auto) Swisher # (Auto) Eos # (Auto) Baso # (Auto) Abs Immat Gran (auto) Absolute Neuts (auto) Absolute Nucleated RBC Nucleated RBC % (auto) PT 18.7 H INR 1.6 H Sodium Potassium Chloride Carbon Dioxide Anion Gap BUN Creatinine Estim Creat Clear Calc Estimated GFR Random Glucose Calcium Magnesium 2.2 Total Bilirubin Direct Bilirubin AST ALT Alkaline Phosphatase Troponin I High Sens B-Natriuretic Peptide 3483 H Total Protein Albumin Lipase Urine Color Urine Appearance Urine pH Ur Specific Alexander Urine Protein Urine Glucose (UA) Urine Ketones Urine Blood Urine Nitrite Ur Leukocyte Esterase Urine RBC Urine WBC Ur Squamous Epith Cells Urine Bacteria Hyaline Casts 04/12/23 04/13/23 04/13/23 23:16 02:44 06:17 WBC RBC Hgb Hct MCV MCH MCHC RDW Plt Count MPV Immature Gran % (Auto) Neut % (Auto) Lymph % (Auto) Swisher % (Auto) Eos % (Auto) Baso % (Auto) Lymph # (Auto) Swisher # (Auto) Eos # (Auto) Baso # (Auto) Abs Immat Gran (auto) Absolute Neuts (auto) Absolute Nucleated RBC Nucleated RBC % (auto) PT INR Sodium 136 Potassium 4.1 Chloride 99 Carbon Dioxide 29 Anion Gap 12 BUN 39 H Creatinine 0.94 Estim Creat Clear Calc 44.6 Estimated GFR 58 Random Glucose 94 Calcium 9.5 Magnesium Total Bilirubin 0.9 Direct Bilirubin AST 18 ALT 6 Alkaline Phosphatase 104 Troponin I High Sens 19.3 H B-Natriuretic Peptide Total Protein 6.9 Albumin 3.5 Lipase Urine Color Yellow Urine Appearance Clear Urine pH 7.0 Ur Specific Alexander <= 1.005 Urine Protein Negative Urine Glucose (UA) Negative Urine Ketones Negative Urine Blood Negative Urine Nitrite Negative Ur Leukocyte Esterase Trace H Urine RBC 0-2 Urine WBC 0-5 Ur Squamous Epith Cells 0-2 Urine Bacteria None Seen Hyaline Casts 0-2 04/13/23 06:17 WBC RBC Hgb Hct MCV MCH MCHC RDW Plt Count MPV Immature Gran % (Auto) Neut % (Auto) Lymph % (Auto) Swisher % (Auto) Eos % (Auto) Baso % (Auto) Lymph # (Auto) Swisher # (Auto) Eos # (Auto) Baso # (Auto) Abs Immat Gran (auto) Absolute Neuts (auto) Absolute Nucleated RBC Nucleated RBC % (auto) PT INR Sodium Potassium Chloride Carbon Dioxide Anion Gap BUN Creatinine Estim Creat Clear Calc Estimated GFR Random Glucose Calcium Magnesium Total Bilirubin Direct Bilirubin AST ALT Alkaline Phosphatase Troponin I High Sens B-Natriuretic Peptide 3136 H Total Protein Albumin Lipase Urine Color Urine Appearance Urine pH Ur Specific Alexander Urine Protein Urine Glucose (UA) Urine Ketones Urine Blood Urine Nitrite Ur Leukocyte Esterase Urine RBC Urine WBC Ur Squamous Epith Cells Urine Bacteria Hyaline Casts Imaging Radiologist's impression: Impressions Chest X-Ray 04/12/23 20:34 IMPRESSION: Blunting of the costophrenic angles which may represent small pleural effusions versus pleural thickening/scarring. Mild right basilar subsegmental atelectasis. Assessment and Plan (1) Acute exacerbation of CHF (congestive heart failure): Status: Acute Acute decompensated congestive heart failure marked LV systolic dysfunction in a patient who has had what appears to be difficulty tolerating neurohormonal modulation. Clinically appears to be in mild heart failure at this point time and improved. Intake and output chart is not well maintain. Continue IV diuresis. Strict intake and output chart needs to be pursued. Blood pressure is on the softer side but would add low-dose Entresto later today. Starting tomorrow for blood pressure remains stable would consider adding other neurohormonal modulation such as metoprolol and/or carvedilol and gradually uptitrate medications as tolerated. Overall prognosis is guarded. Then healthcare proxy who makes decisions for her has decided that she is do not resuscitate as [facility] the [facility]. They also do not want any aggressive medical management. She does have chest pain syndrome likelihood of underlying coronary artery disease also management would be medical. Starting tomorrow can add nitrates to her regimen as well for coronary vaso dilatation and to treat presumed angina and coronary artery disease. Will continue to follow with you. Time Spent With Patient Time: Total time managing care of this patient today ____ minutes. Procedures Date of Service Date of Service: 04/13/23
--- NOTE | 2023-04-13 11:37 | MHC.CM.PN ---
CM MET WITH PTS GINA ANGULO AT BEDSIDE SHE CONFIRMS PT IS A LTC RESIDENT OF [facility] PT HCP IS INVOKED RUBY ALSO ON FILE PT IS SUPPOSED TO USE A WALKER AT [facility] IMM DELIVERED DCP: RETURN TO [facility] VIA BLS
[2023-04-13 11:46] VITALS: BP 121/60; PULSE 93; RESP 19; TEMP 37.2; O2SAT 95
--- NOTE | 2023-04-13 13:55 | P.EN_ITS ---
Event Note Date of Service: 04/14/23 Event Note: Patient seen and examined-already hospitalist team this morning Seen and examined again shortness of breath improving, denies any chest pain Physical exam-as in h&P chest: air entry seems improving ,has rales at bases. Assessment plan as in h&p notes Acute decompensated congestive heart failure marked LV systolic dysfunction sob and bnp improving Continue diuretics, daily weights I&O monitoring. Plan to add Entresto small dose blood pressure loss. starting tomorrow -may add bb and may be nitrates her ?chest pain syndrome likelihood of underlying coronary artery disease also management would be medical. ?healthcare proxy who makes decisions for her has decided that she is do not resuscitate as [facility] They also do not want any aggressive medical management Time Spent With Patient Time: Total time managing care of this patient today ____ minutes.
[2023-04-13 15:14] VITALS: BP 122/61; PULSE 68; RESP 14; TEMP 36.3; O2SAT 96
[2023-04-13 19:51] VITALS: BP 103/55; PULSE 87; RESP 14; TEMP 36.4; O2SAT 96
[2023-04-13] MEDS: Sacubitril/Valsartan 24/26 1 TAB TABLET PO (19:58)
[2023-04-13] MEDS: Apixaban 2.5 MG TABLET PO (19:58)
[2023-04-13] MEDS: Atorvastatin Calcium 20 MG TABLET PO (19:58)
[2023-04-14] MEDS: Enoxaparin Sodium 40 MG/0.4 ML SYRINGE SUBCUT (01:56)
[2023-04-14] MEDS: Acetaminophen 325 MG TABLET 650 MG PO ×2 (01:56→19:43)
[2023-04-14 03:02] VITALS: BP 118/86; PULSE 86; RESP 16; TEMP 36.8; O2SAT 96
[2023-04-14 07:47] VITALS: BP 118/56; PULSE 78; RESP 18; TEMP 36.2; O2SAT 96
[2023-04-14 09:02] LABS: Anion Gap 15 (12-20); Blood Urea Nitrogen 34 mg/dL (9-16); Carbon Dioxide 26 mmol/L (22-29); Chloride 101 mmol/L (96-108); Creatinine Clr Calc Pharmacy 44.1; Estimated Glomerular Filt Rate 57; Glucose Random 96 mg/dL (60-115); Potassium 4.2 mmol/L (3.3-5.1); Sodium 138 mmol/L (135-145)
[2023-04-14 09:04] LABS: B Type Natriuretic Peptide 3487 pg/mL (<100)
[2023-04-14] MEDS: Aspirin Enteric Coated 81 MG TABLET.DR PO (09:37)
[2023-04-14] MEDS: Apixaban 2.5 MG TABLET PO ×2 (09:37→19:43)
[2023-04-14] MEDS: Sacubitril/Valsartan 24/26 1 TAB TABLET PO ×2 (09:37→19:43)
[2023-04-14] MEDS: Metoprolol Tartrate 12.5 MG HALFTAB PO ×2 (09:37→19:43)
[2023-04-14] MEDS: Anastrozole 1 MG TABLET PO (09:37)
[2023-04-14] MEDS: 0.9 % Sodium Chloride Flush 3 ML SYRINGE IVFLUSH ×2 (09:38→18:04)
--- NOTE | 2023-04-14 10:17 | PM.PNCARD ---
Subjective Subjective Date of Service: 04/14/23 Principal diagnosis: congestive heart failure. Interval history: Patient still appears confused and complaining predominantly of the left leg pain. She is not focusing on a cardiac condition. Had a detailed discussion yesterday with her healthcare proxy. Currently denying any chest pain or shortness of breath. Blood pressures remained stable. Review of Systems Review of Systems Yes Unobtainable due to mental status Reports confusion Psychiatric: Reports confusion Physical Exam Vital Signs: Last Vital Signs Temp 97.2 F 04/14/23 07:47 Pulse 78 04/14/23 07:47 Resp 18 04/14/23 07:47 BP 118/56 L 04/14/23 07:47 Pulse Ox 96 04/14/23 07:47 O2 Del Method Room Air 04/14/23 07:47 BMI result Body Mass Index 23.9 Const General: cooperative, comfortable, alert, awake and confusion Nutritional Appearance: average body habitus Orientation/consciousness: confusion Limitations: no limitations Neck Neck: Yes trachea midline, Yes supple and Yes no JVD Resp Effort & Inspection: normal respiratory effort Auscultation: clear to auscultation bilaterally Cardio Rate: regular rate Rhythm: regular rhythm Heart sounds: S1 normal heart sound present, S2 normal heart sound present, no click, no gallops and no murmurs GI Auscultation: normal bowel sounds Skin General skin exam: no rashes or lesions noted Neuro General: no focal motor deficits and confusion Extrem General: No no clubbing, cyanosis or edema Psych Appearance: grossly normal Objective Labs and Meds 04/12/23 20:28 04/14/23 08:30 Lab results: Laboratory Results - last 24 hr 04/14/23 04/14/23 08:30 08:30 Sodium 138 Potassium 4.2 Chloride 101 Carbon Dioxide 26 Anion Gap 15 BUN 34 H Creatinine 0.95 Estim Creat Clear Calc 44.1 Estimated GFR 57 Random Glucose 96 Calcium 10.0 B-Natriuretic Peptide 3487 H Progress Note: A&P Assessment and plan (1) Acute exacerbation of CHF (congestive heart failure): Status: Acute Assessment and Plan: Acute congestive heart failure with severe LV systolic dysfunction this elderly woman suggestive of ischemic cardiomyopathy. She present with chest discomfort which could represent myocardial ischemia. After discussing with healthcare proxy management will be medical. Would continue with Entresto which she is tolerating with a blood pressure at this point time. Can switch to p.o. diuretics. Will also start on low-dose metoprolol therapy. This will act as a neurohormonal modulation as well as an antianginal. Overall prognosis is guarded and given her cognitive impairment management would be conservative and medical. The healthcare proxy is agreeable to this management plan. Will sign of the care. Follow-up with her primary licensed vocational nurse as outpatient in 7-10 days Time Spent With Patient Time: Total time managing care of this patient today ____ minutes. Progress Note: Quality Stroke Does the patient have a stroke diagnosis?: No Procedures Date of Service Date of Service: 04/14/23
--- NOTE | 2023-04-14 11:12 | PM.DS ---
DS: Providers Provider Date of Service: 04/14/23 Date of admission: 04/13/23 00:24 Date of discharge: 04/14/23 Primary care physician: Kenya Cerda MD Consults: 04/13/23 00:20 Consult to Cardiology Routine Consulting Provider: [facility] Reason for consultation: CHF Has provider been notified: No Attending physician on discharge: Margaux Mauro Discharging clinician: Margaux Mauro DS: Diagnosis Discharge Diagnosis (1) Acute exacerbation of CHF (congestive heart failure): Status: Acute (2) Chest pain: Status: Acute DS: Summary Hospital Course Hospital Course: 77-year-old female past medical history of CHF with reduced ejection fraction, ? History of left bundle-branch block presents the hospital with complaints of chest pain that started this afternoon.? patient is a poor historian but reports that she has? chest pain across the chest, feels like something/ someone is sitting on her chest, nonradiating, lasted less than 30 minutes, resolved spontaneously, occurred at rest.? Patient is also complaining of shortness of breath this been going on for several days, orthopnea, PND, no lower extremity edema.? No cough, no fever chills.? She denies any palpitations, no abdominal pain nausea or vomiting, no diarrhea constipation, no urinary symptoms and no lower extremity edema.? Arrival to the ED patient hemodynamically stable no significant abnormal vitals Labs are significant for BNP of 3483, troponin of 17 that increased to 19, EKG showed normal sinus rhythm,? with T-wave inversions in V6 left bundle branch block which patient has a history of. ?chest x-ray shows blunting of the costophrenic angle which may represent small pleural effusions ?patient started on IV Lasix and will be admitted for further management. Hospital course: Patient came to the hospital because chest pain , also found to CHF exacerbation(HF with reduced EF): Patient was diuresed with IV Lasix-shortness of breath seems to be improving. Patient seen by Cardiology: Initially was given IV Lasix and subsequently was switched to p.o. diuretics, added small dose metoprolol in addition to Entresto.?She also had chest discomfort on admission which could represent myocardial ischemia.? After discussing with healthcare proxy management will be medical.? Would continue with Entresto which she is tolerating with a blood pressure at this point time.? Can switch to p.o. diuretics and started on low-dose metoprolol therapy.? This will act as a neurohormonal modulation as well as an antianginal.? Overall prognosis is guarded and given her cognitive impairment management would be conservative and medical.? The healthcare proxy is agreeable to this management plan.? plan: Continue diuretics home dose, Entresto, in addition metoprolol 12.5 mg p.o. b.i.d. added. Family wants conservative management as above, follow-up with outpatient cardiology. Time Spent with Patient Time attestation: Total time managing care of this patient today ____ minutes. Discharge coordination time: Greater than 30 minutes Quality: Safe Use of Opioids Does Pt have an Active Cancer Diagnosis on the Problem List?: No Quality: Stroke Does the patient have a stroke diagnosis?: No Physical Exam Vital Signs: Vital Signs: Last Vital Signs Temp 97.2 F 04/14/23 07:47 Pulse 78 04/14/23 07:47 Resp 18 04/14/23 07:47 BP 118/56 L 04/14/23 07:47 Pulse Ox 96 04/14/23 07:47 O2 Del Method Room Air 04/14/23 07:47 BMI result Body Mass Index 23.9 Appearance: Alert.? Oriented ,seems near her baseline.? not in distress.? cvs: [id number], [id number] . res: clear to auscultation ,no rhonchii or wheezing abd: no rebound or guarding ,nt, bs present. ext pulses present , no cyanosis. neuro: axo3 , nonfocal. DS: Data Data Completed and Pending Labs on day of discharge: Laboratory Results - last 24 hr 04/14/23 04/14/23 08:30 08:30 Sodium 138 Potassium 4.2 Chloride 101 Carbon Dioxide 26 Anion Gap 15 BUN 34 H Creatinine 0.95 Estim Creat Clear Calc 44.1 Estimated GFR 57 Random Glucose 96 Calcium 10.0 B-Natriuretic Peptide 3487 H Imaging Chest x-ray: Radiologist's impression: ITS Impressions Chest X-Ray 04/12/23 20:34 IMPRESSION: Blunting of the costophrenic angles which may represent small pleural effusions versus pleural thickening/scarring. Mild right basilar subsegmental atelectasis. Discharge Plan Discharge Anticipated Discharge Date/Time: 04/14/23 11:11 Patient Disposition: Xfer SNF Discharge Diagnosis: chest pain ,chf Referrals: Kenya Cerda MD [Primary Care Provider] - 1 Week Discharge Medications: New metoprolol tartrate 25 mg tablet 12.5 mg PO BID Qty: 60 0RF Continued metolazone 2.5 mg tablet 2.5 mg PO MOFR anastrozole 1 mg Tablet 1 mg PO DAILY acetaminophen 325 mg Tablet 650 mg PO Q4H PRN (Reason: Pain) atorvastatin 20 mg tablet 20 mg PO BEDTIME torsemide 20 mg tablet 40 mg PO DAILY aspirin [Aspir-81] 81 mg Tablet,Delayed Release (Dr/Ec) 81 mg PO DAILY Artificial Eye Lubricant 83-15 % Ointment 1 appl OPHTHALMIC (EYE) DAILY PRN (Reason: Dry Eye(S)) Eliquis 2.5 mg tablet 2.5 mg PO BID Entresto 24-26 mg tablet 1 tab PO BID Discharge Orders: Discharge Order (Routine); Ordered 04/14/23 Ordered By: Margaux Mauro Diet: Advance to usual diet Activity on Discharge: As tolerated Stand Alone Forms: Patient Portal Discharge page Care Plan Goals: Patient came to the hospital because chest pain , also found to CHF exacerbation(HF with reduced EF): Patient was diuresed with IV Lasix-shortness of breath seems to be improving. Patient seen by Cardiology: Initially was given IV Lasix and subsequently was switched to p.o. diuretics, added small dose metoprolol in addition to Entresto.?She also had chest discomfort on admission which could represent myocardial ischemia.? After discussing with healthcare proxy management will be medical.? Would continue with Entresto which she is tolerating with a blood pressure at this point time.? Can switch to p.o. diuretics and started on low-dose metoprolol therapy.? This will act as a neurohormonal modulation as well as an antianginal.? Overall prognosis is guarded and given her cognitive impairment management would be conservative and medical.? The healthcare proxy is agreeable to this management plan.? Health Concerns: As above. Plan of Treatment: As above. Assessment: As above. Patient Instructions: Heart Failure (DC), Chest Pain (GEN)
--- NOTE | 2023-04-14 11:34 | MHC.CM.PN ---
Addendum entered by Steffi Kelly, RN 04/14/23 11:54: PER HOSPITALIST D/C CANCELLED, ANTIC PT WILL REMAIN INPT 1-2 DAYS PER CARDIOLOGY. Original Note: PT MEDICALLY CLEARED FOR D/C BACK TO LTC AT [facility], PT'S HCP GINA NOTIFIED AT 11:30AM AT NUMBER ON FILE, [facility] FOR BLS TRANSPORT
[2023-04-14 11:37] VITALS: BP 96/51; PULSE 88; RESP 18; TEMP 35.9; O2SAT 98
--- NOTE | 2023-04-14 13:48 | P.PNIM_ITS ---
Subjective Subjective Date of Service: 04/17/23 Interval History: chf excerebation Review of Systems sob seems improved . Dated chest pain or nausea vomiting or abdominal pain . Physical Exam Vital Signs: Vital Signs: Last Vital Signs Temp 96.6 F L 04/14/23 11:37 Pulse 88 04/14/23 11:37 Resp 18 04/14/23 11:37 BP 96/51 L 04/14/23 11:37 Pulse Ox 98 04/14/23 11:37 O2 Del Method Room Air 04/14/23 11:37 BMI result Body Mass Index 23.9 Appearance: Alert.? Oriented ,seems near her baseline.? not in distress.? cvs: rrr, [id number] . res: clear to auscultation ,no rhonchii or wheezing abd: no rebound or guarding ,nt, bs present. ext pulses present , no cyanosis. neuro: axo3 , nonfocal. Objective Data Active Medications Acetaminophen (Acetaminophen 325 Mg Tablet) 650 mg PO Q6H PRN PRN Reason: Pain, Mild (Pain Scale 1-3) Last Admin: 04/14/23 01:56 Dose: 650 mg Documented By: JOSE Acetaminophen (Acetaminophen 325 Mg Tablet) 975 mg PO Q8H PRN PRN Reason: Pain, Mild (Pain Scale 1-3) Anastrozole (Anastrozole 1 Mg Tablet) 1 mg PO DAILY [facility] Last Admin: 04/14/23 09:37 Dose: 1 mg Documented By: JOSE Apixaban (Apixaban 2.5 Mg Tablet) 2.5 mg PO BID [facility] Last Admin: 04/14/23 09:37 Dose: 2.5 mg Documented By: JOSE Aspirin (Aspirin Enteric Coated 81 Mg Tablet.) 81 mg PO DAILY [facility] Last Admin: 04/14/23 09:37 Dose: 81 mg Documented By: JOSE Atorvastatin Calcium (Atorvastatin Calcium 20 Mg Tablet) 20 mg PO BEDTIME [facility] Last Admin: 04/13/23 19:58 Dose: 20 mg Documented By: ALONSO Docusate Sodium (Docusate Sodium 100 Mg Capsule) 100 mg PO DAILY PRN PRN Reason: Constipation Furosemide (Furosemide 20 Mg Tablet) 20 mg PO BID@0900,1800 [facility]; Protocol Metoprolol Tartrate (Metoprolol Tartrate 12.5 Mg Halftab) 12.5 mg PO BID [facility]; Protocol Last Admin: 04/14/23 09:37 Dose: 12.5 mg Documented By: JOSE Multi-Ingred Cream/Lotion/Oil/Oint (Artificial Tears Ophth Oint 3.5 Gm Tube) 1 appl EYE-BOTH DAILY PRN; Protocol PRN Reason: Dry Eye(S) Ondansetron HCl (Ondansetron Hcl 4 Mg/2 Ml Vial) 4 mg IVPUSH Q8H PRN PRN Reason: Nausea and Vomiting Pharmacy Consult (Consult Rx Perform Med Rec) 1 each MISCELLANE ONCE PRN PRN Reason: Consult order Sacubitril/Valsartan (Sacubitril/Valsartan 1 Tab Tablet) 1 tab PO BID [facility] Last Admin: 04/14/23 09:37 Dose: 1 tab Documented By: JOSE Sodium Chloride (0.9 % Sodium Chloride Flush 3 Ml Syringe) 3 ml IVFLUSH QSHIFT [facility] Last Admin: 04/14/23 09:38 Dose: 3 ml Documented By: JOSE Labs 04/12/23 20:28 04/14/23 08:30 Labs: Laboratory Results - last 24 hr 04/14/23 04/14/23 08:30 08:30 Anion Gap 15 Estim Creat Clear Calc 44.1 Estimated GFR 57 Random Glucose 96 Calcium 10.0 B-Natriuretic Peptide 3487 H Assessment and Plan (1) Chest pain: Status: Acute (2) Acute exacerbation of CHF (congestive heart failure): Status: Acute Plan ?77-year-old female with past medical history of CHF with preserved ejection fraction, history of LBBB,? presents to the hospital with complaints of chest pain found to be in CHF exacerbation ? acute CHF exacerbation with low EF-? has elevated BNP, evidence of pulmonary effusion still somewhat tired and excersional sob but improving echocardiogram: 20-25% range moniter daily weights, i/o started on IV Lasix-we may conisder switch to po in day or so cardiology consult noted-,added small dose metoprolol in addition to Entresto.?She also had? chest discomfort on admission which could represent myocardial ischemia.? After discussing with healthcare proxy management will be medical.? Would continue with Entresto which she is tolerating with a blood pressure at this point time.? Can switch to p.o. diuretics and? started on low- dose metoprolol therapy.? Overall prognosis is guarded and given her cognitive impairment management would be conservative and medical.? The healthcare proxy is agreeable to this management plan. ? chest pain -? although typical, patient has slightly elevated troponin with no delta -? EKG? shows LBBB, but according to her history patient has a history of it with no? new evidence of ACS -? likely type 2 in the setting of CHF ?She also had? chest discomfort on admission which could represent myocardial ischemia.? After discussing with healthcare proxy management will be medical.?? ?patient med rec still pending, consulted pharmacy ?DVT prophylaxis:? Lovenox ?Given patient's need for treatment with IV Lasix,restarted enteresto,added metoprolol- moniter blood pressures,need tele and chf optimisation Time Spent With Patient Time: Total time managing care of this patient today ____ minutes. Quality Stroke Does the patient have a stroke diagnosis?: No VTE Prior VTE?: No VTE Risk Level:: Medical - moderate - high VTE Device Contraindication: Treatment Not Indicated VTE Drug Contraindication: N/A - Med Ordered
[2023-04-14 15:22] VITALS: BP 109/53; PULSE 92; RESP 18; TEMP 37; O2SAT 94
--- NOTE | 2023-04-14 15:39 | PC.NURSE ---
Assumed care of patient at this time
[2023-04-14] MEDS: Furosemide 20 MG TABLET PO (18:04)
[2023-04-14 19:14] VITALS: BP 107/58; PULSE 104; RESP 18; TEMP 37; O2SAT 98
[2023-04-14] MEDS: Atorvastatin Calcium 20 MG TABLET PO (19:43)
[2023-04-14 23:14] VITALS: BP 104/51; PULSE 56; RESP 18; TEMP 36.7; O2SAT 96
[2023-04-15 03:53] VITALS: BP 110/56; PULSE 84; RESP 18; TEMP 36.9; O2SAT 96
[2023-04-15 07:25] VITALS: BP 97/53; PULSE 77; RESP 20; TEMP 36.8; O2SAT 94
--- NOTE | 2023-04-15 10:26 | MHC.CM.PN ---
Patient has been medically cleared for dc to LTC today. Patient will return to LTC @ [facility] today at 2PM, via [facility]. Last IMM addressed on 04/13/2023. CM spoke with Sister/Alexandra @ [phone], who is aware of and in agreement with the dc plan, as is Patient.
[2023-04-15] MEDS: Furosemide 20 MG TABLET PO (10:47)
[2023-04-15] MEDS: Apixaban 2.5 MG TABLET PO (10:47)
[2023-04-15] MEDS: Metoprolol Tartrate 12.5 MG HALFTAB PO (10:47)
[2023-04-15] MEDS: Aspirin Enteric Coated 81 MG TABLET.DR PO (10:47)
[2023-04-15] MEDS: Sacubitril/Valsartan 24/26 1 TAB TABLET PO (10:47)
[2023-04-15] MEDS: 0.9 % Sodium Chloride Flush 3 ML SYRINGE IVFLUSH (10:48)
[2023-04-15] MEDS: Anastrozole 1 MG TABLET PO (10:52)
[2023-04-15 11:30] VITALS: BP 96/52; PULSE 83; RESP 20; TEMP 36.7; O2SAT 94
[2023-04-15 15:19] VITALS: BP 100/53; PULSE 76; RESP 18; TEMP 37; O2SAT 98
[2023-04-15] MEDS: Acetaminophen 325 MG TABLET 650 MG PO (15:55)
== END 2023-04-15 17:56 | disposition skilled nursing facility (03) | DRG 291 ==
LOC: HO.ED 23:59 → HO.EDOVER 04-13 00:33 → HO.IMC 04-13 02:53
PROVIDERS: Emergency Medicine; Admitting Provider Internal Medicine; Emergency Provider Emergency Medicine; PCP Family Medicine Geriatric Medicine; Visit Provider Internal Medicine
DX: I11.0 Hypertensive heart disease with heart failure (principal); I50.23 Acute on chronic systolic (congestive) heart failure; Z66 Do not resuscitate; M79.672 Pain in left foot; I25.5 Ischemic cardiomyopathy; I25.2 Old myocardial infarction; Z79.01 Long term (current) use of anticoagulants; Z79.82 Long term (current) use of aspirin; Z79.811 Long term (current) use of aromatase inhibitors; Z79.899 Other long term (current) drug therapy
CPT/HCPCS: 36415; 71045; 73610; 73620; 80048; 80053; 80076; 81001; 83690; 83735; 83880; 84484; 85025; 85610; 93005; 93306; 93356; 99285; J1650; J1940; Q9957